=== PATIENT | female | born 1990 | race Caucasian/White ===

== ENCOUNTER 2022-07-08 09:24 | Emergency (ER) | payer SELFPAY ==
[2022-07-08 09:28] VITALS: BP 103/63; PULSE 76; RESP 16; TEMP 36.6; O2SAT 98; BMI 23.8
--- NOTE | 2022-07-08 09:50 | ED_ITS ---
HPI - General Adult General Chief complaint: Skin/Abscess/Foreign Body Stated complaint: condom stuck in vagina Time Seen by Provider: 07/08/22 09:27 History of Present Illness HPI narrative: This 31-year-old female comes in reporting a condom that is in her vaginal vault. This occurred about an hour prior to arrival during intercourse where the condom came off. She does not report any pain or fever. Related Data Home Medications Medication Instructions Recorded Confirmed No Known Home Medications 07/08/22 07/08/22 Allergies Allergy/AdvReac Type Severity Reaction Status Date / Time Penicillins Allergy Mild Hives Verified 07/08/22 09:37 Review of Systems Status of ROS: Reports: 10 or more systems reviewed and unremarkable except as noted in History and below Narrative: Constitutional: No fevers, no weight gain or loss. Eyes: No discharge. No vision changes. HENT: No congestion, no sore throat, no ear pain. Cardiovascular: No chest pain, no palpitations. Respiratory: No shortness of breath, no wheezes, no cough. Gastrointestinal: No abdominal pain, no vomiting, no diarrhea. Genitourinary: No dysuria, no hematuria. Musculoskeletal: Normal range of motion. Skin: No rashes, no pruritis. Neurological: No dizziness, weakness, sensory change, speech change. Endo/Heme/Allergies: No bruising or bleeding. No polydipsia. Pysch: no suicidality, no anxiety, no insomnia. All other systems reviewed and are negative. Exam Narrative: Exam Narrative: Constitutional: Well-developed, well-nourished, no acute distress. HEENT: Normocephalic, atraumatic. Neck: Normal range of motion. Nontender. Supple. Heart: Intact distal pulses. Lungs: No chest discomfort. No wheezes, rhonchi, or rales. Abdomen: Nontender. Back: Normal range of motion. Extremities: Normal range of motion. No injury. Skin: Intact. No rash. Warm. No erythema or pallor. Neurologic: No altered sensation. No weakness. Alert and oriented. Psychiatric: No suicidality. No anxiety or depression. No insomnia. Nursing notes and vitals signs are reviewed. Const: Vital Signs, click to edit/add: Vital Signs - 24 hr 07/08/22 09:28 Temperature 97.9 F Pulse Rate [Right Pulse Oximeter] 76 Respiratory Rate 16 Blood Pressure [Ri ght Upper Arm] 103/63 Pulse Oximetry 98 Oxygen Delivery Me thod Room Air Course Vital Signs Vital signs: Initial Vital Signs Temperature 97.9 F 07/08/22 09:28 Temperature Source Temporal Artery Scan 07/08/22 09:28 Pulse Rate 76 07/08/22 09:28 Pulse Rhythm 07/08/22 09:28 Respiratory Rate 16 07/08/22 09:28 Blood Pressure 103/63 07/08/22 09:28 Blood Pressure Mean 76 07/08/22 09:28 Blood Pressure Position Sitting 07/08/22 09:28 Pulse Oximetry 98 07/08/22 09:28 Oxygen Delivery Method 07/08/22 09:28 Vital Signs Temperature 97.9 F 07/08/22 09:28 Pulse Rate 76 07/08/22 09:28 Respiratory Rate 16 07/08/22 09:28 Blood Pressure 103/63 07/08/22 09:28 Pulse Oximetry 98 07/08/22 09:28 Oxygen Delivery Method 07/08/22 09:28 Temperature 97.9 F 07/08/22 09:28 Pulse Rate 76 07/08/22 09:28 Respiratory Rate 16 07/08/22 09:28 Blood Pressure 103/63 07/08/22 09:28 Pulse Oximetry 98 07/08/22 09:28 Oxygen Delivery Method 07/08/22 09:28 Medical Decision Making MDM Narrative Medical decision making narrative: This patient has a condom in her vaginal vault that needs to be removed. With a nurse present a speculum was introduced and the condom is visualized and was removed using a tongs. The patient tolerated this procedure well. She is okay to be discharged. Discharge Plan Discharge Clinical Impression: Foreign body Patient Disposition: Home, Self-Care Condition: Improved Additional Instructions: Follow up with MD as needed. Return if worsening. Prescriptions: No Action No Known Home Medications Stand Alone Forms: [place] [facility] Info Instructions
== END 2022-07-08 10:11 | disposition home or self-care (01) ==
LOC: ED 10:01
PROVIDERS: Emergency Provider Emergency Medicine Emergency Medical Services
DX: T19.2XXA Foreign body in vulva and vagina, initial encounter (principal)
CPT/HCPCS: 99283